=== PATIENT | male | born 1955 | race Caucasian/White ===

== ENCOUNTER 2024-03-30 11:32 | Emergency (ER) | payer MEDICARE, OTHER ==
[~2024-03-30] VITALS: Ht 172.7 cm; Wt 122.0 kg
[2024-03-30 11:36] VITALS: O2SAT 100
[2024-03-30 12:46] LABS: HEMATOCRIT. 37.3 % (42.0-52.0); HEMOGLOBIN. 12.5 g/dL (14.0-18.0); MEAN CORPUSCULAR HEMOGLOBIN 30.4 pg (28.0-32.0); MEAN CORPUSCULAR HGB CONC 33.5 g/dL (31.0-37.0); MEAN CORPUSCULAR VOLUME 90.8 fL (80.0-94.0); MEAN PLATELET VOLUME 9.1 fl (7.4-10.4); PLATELET 239 x1000/uL (130-400); RED BLOOD CELL COUNT 4.11 mill/uL (4.7-6.1); RED CELL DISTRIBUTION WIDTH 15.4 % (11.6-14.6); WHITE BLOOD COUNT 10.1 x1000/uL (4.5-11.0)
[2024-03-30 12:51] LABS: DIFFERENTIAL COMMENT 1
[2024-03-30 12:55] LABS: INR 0.9; PROTHROMBIN TIME 10.3 sec (9.6-11.0)
[2024-03-30] MEDS: SODIUM CHLORIDE 0.9% 1,000 ML IV ONE (12:59)
[2024-03-30 13:08] LABS: POTASSIUM 5.2 mEq/L (3.5-5.1)
[2024-03-30 13:09] LABS: CALCIUM 9.6 mg/dL (8.7-10.4)
[2024-03-30 13:15] LABS: ANISOCYTOSIS 1+; PLATELET ESTIMATE NORMAL
[2024-03-30 13:20] LABS: CREATININE 6.4 mg/dL (0.6-1.3)
[2024-03-30 15:15] VITALS: BP 163/92; PULSE 93; RESP 16; TEMP 37.4; O2SAT 99
== END 2024-03-30 15:18 | disposition home or self-care (01) ==
LOC: ER 11:32
DX: T82.838A Hemorrhage due to vascular prosthetic devices, implants and grafts, initial encounter (principal); E11.22 Type 2 diabetes mellitus with diabetic chronic kidney disease; I12.0 Hypertensive chronic kidney disease with stage 5 chronic kidney disease or end stage renal disease; N18.6 End stage renal disease; Z99.2 Dependence on renal dialysis; X58.XXXA Exposure to other specified factors, initial encounter; Y93.89 Activity, other specified; Y99.8 Other external cause status; Y92.009 Unspecified place in unspecified non-institutional (private) residence as the place of occurrence of the external cause; Y84.1 Kidney dialysis as the cause of abnormal reaction of the patient, or of later complication, without mention of misadventure at the time of the procedure
CPT/HCPCS: 99283; 80048; 85025; 85610; 86850; 86900; 86901; 36415; J7030